=== PATIENT | male | born 1965 | race American Indian/Alaskan Native ===

== ENCOUNTER 2017-11-01 10:01 | Day surgery (SDC) | payer BC ==
--- NOTE | 2017-11-01 10:52 | Anesthesia Consultation ---
Anesthesia Consult and Med Hx Date of service: 11/01/17 - Airway Anesthetic Teeth Evaluation: Good ROM Head & Neck: Adequate Mental/Hyoid Distance: Adequate Mallampati Class: Class III Intubation Access Assessment: Possibly Difficult - Pulmonary Exam CTA: Yes - Cardiac Exam Cardiac Exam: RRR - Pre-Operative Health Status ASA Pre-Surgery Classification: ASA3 Proposed Anesthetic Plan: General - Pulmonary Hx Asthma: Yes Hx Sleep Apnea: Yes - Cardiovascular System Hx Hypertension: Yes - Central Nervous System Hx Back Pain: Yes - Gastrointestinal Hx Gastroesophageal Reflux Disease: Yes - Additional Comments Anesthesia Medical History Comments: patient with hx of occassional chest discomfort while at rest; no baseline EKG; will obtain
[2017-11-01] MEDS ORDERED: TYLENOL PO PRN (10:53)
[2017-11-01] MEDS ORDERED: ZOFRAN IV PRN (10:53)
[2017-11-01] MEDS ORDERED: DILAUDID IV PRN ×2 (10:53)
[2017-11-01] MEDS ORDERED: PERCOCET 5/325 PO PRN (10:53)
--- NOTE | 2017-11-01 10:53 | Anesthesia Day of Surgery ---
Anesthesia Day of Surgery - Day of Surgery Patient Examined: Yes Patient H&P Reviewed: Yes Patient is NPO: Yes Beta Blockers: No
[2017-11-01] MEDS ORDERED: PROVENTIL IH NR (11:00)
[2017-11-01] MEDS ORDERED: LACTATED RINGERS 1,000 ML IV SCH (12:00)
[2017-11-01] MEDS ORDERED: ANCEF/STERILE WATER 2 GM/20 ML IV NR (12:00)
[2017-11-01] MEDS ORDERED: DIPRIVAN 10 MG/ML IV ONE (13:22)
[2017-11-01] MEDS ORDERED: SUBLIMAZE ONE (13:22)
[2017-11-01] MEDS ORDERED: XYLOCAINE MPF 2% ONE (13:24)
[2017-11-01] MEDS ORDERED: ROBINUL ONE (14:06)
[2017-11-01] MEDS ORDERED: ZOFRAN ONE (14:07)
--- NOTE | 2017-11-01 15:07 | Operative Report ---
PREOPERATIVE DIAGNOSIS: Hematuria. POSTOPERATIVE DIAGNOSIS: Prostatic enlargement. No acute findings. PROCEDURE: Cystoscopy, bilateral retrograde pyelography, bladder biopsy, fulguration. SURGEON: Brenton Hu MD ANESTHESIA: General. FINDINGS: The gentleman with hematuria. He had clots. CT scan was unremarkable. Now presents for cystoscopy. DESCRIPTION OF PROCEDURE: The patient brought to the operating room and placed on the operating table. Following induction of anesthesia, placed in lithotomy position, prepped and draped in usual sterile fashion. Cystourethroscopy showed no bladder lesions. Prostate was enlarged with mostly bilobar hypertrophy. There were no bladder lesions. The orifices were tucked behind the median bar, nothing real big and retrogrades were easily done. There were no persistent filling defects. There was few air bubbles left side. The patient tolerated the procedure well. Bladder biopsy random was carried out. Area was cauterized. No Barrett was left, brought to recovery in stable condition. JOB# [id number] BON/JOI
--- NOTE | 2017-11-01 15:37 | Post Operative Note ---
Date of procedure: 11/01/17 Pre-op diagnosis: gross hematuria Post-op diagnosis: same Findings: bph Procedure: cysto bx rpgs Anesthesia: GETA Estimated blood loss: none Pathology: list (bladder) Specimen disposition: to lab Condition: stable Disposition: PACU
--- NOTE | 2017-11-01 15:39 | Discharge Summary ---
Short Stay Discharge Plan Activity: other (no straining ) Weight Bearing Status: Full Weight Bearing Diet: regular Special Instructions: other (inc fluids ) Durable Medical Equipment Needed Upon Discharge: other Follow up with: LUIS FELIPE ESPANA MD [Primary Care Provider] - 7 Days TOBIN LORA MD [Staff Physician] - 14 Days
[2017-11-01 17:20] VITALS: BP 130/90
--- NOTE | 2017-11-02 07:30 | Post Anesthesia Evaluation ---
- Post Anesthesia Evaluation Patient Participated: Yes Airway Patent: Yes Stable Respiratory Function: Yes Nausea/Vomiting: No Temp > 96.8F: No Pain Manageable: Yes Adequeate Hydration: Yes Anesthesia Complications: No
--- NOTE | 2017-11-02 09:43 | Fluoroscopy Report ---
FLUOROSCOPY RETROGRADE UROGRAPHY: HISTORY: Hematuria. FINDINGS: Fluoroscopy was provided by radiology during retrograde urography by the urologist. 5 fluoroscopic images were captured. There is adequate filling of the ureters and intrarenal collecting systems with no filling defects or anatomic abnormalities identified. Please correlate with the procedural report if needed. IMPRESSION: Retrograde pyelograms within normal limits.
== END 2017-11-01 17:04 | disposition home or self-care (01) ==
LOC: OR 10:01
PROVIDERS: ATTEND Urology
DX: N30.21 Other chronic cystitis with hematuria (principal); N40.0 Benign prostatic hyperplasia without lower urinary tract symptoms; I10 Essential (primary) hypertension; J45.909 Unspecified asthma, uncomplicated; G47.30 Sleep apnea, unspecified; K21.9 Gastro-esophageal reflux disease without esophagitis; E11.9 Type 2 diabetes mellitus without complications; M19.90 Unspecified osteoarthritis, unspecified site; Z87.442 Personal history of urinary calculi; Z87.440 Personal history of urinary (tract) infections; Z85.51 Personal history of malignant neoplasm of bladder; Z79.899 Other long term (current) drug therapy; Z79.84 Long term (current) use of oral hypoglycemic drugs
CPT/HCPCS: 52204; 74420; 82962; 88112; 88305; 93005; 93010; C1758; J0690; J2405; J2704; J3010; J7120; Q9967